=== PATIENT | male | born 1990 | race Asian ===

== ENCOUNTER 2016-08-05 18:30 | Emergency (ER) | payer MEDICAID ==
[~2016-08-05] VITALS: Ht 180.3 cm; Wt 79.4 kg
[2016-08-05 18:37] VITALS: BP_SYST 153
[2016-08-05] MEDS ORDERED: BACITRACIN 1 GM OINT TP ONE (19:00)
[2016-08-05] MEDS ORDERED: DIPH-TET-PERTUS Vaccine 0.5 ML VIAL (ADACEL) IM ONE (19:00)
[2016-08-05 19:05] VITALS: BP_SYST 135
== END 2016-08-05 19:05 | disposition home or self-care (01) ==
LOC: SED 18:30
DX: S60.512A Abrasion of left hand, initial encounter (principal); S60.511A Abrasion of right hand, initial encounter; Z88.0 Allergy status to penicillin; W54.0XXA Bitten by dog, initial encounter; Y93.89 Activity, other specified; Y92.89 Other specified places as the place of occurrence of the external cause; Y99.8 Other external cause status
CPT/HCPCS: 90715; 99283